=== PATIENT | female | born 1960 | race Caucasian/White ===

== ENCOUNTER 2017-11-06 08:59 | Outpatient (CLI) | payer MEDICAID ==
[~2017-11-06] VITALS: Ht 160 cm; Wt 80.6 kg
--- NOTE | ~2017-11-06 | HEMODYNAMI ---
PATIENT:KRZYSZTOF FIELDS MEDICAL RECORD: [id number] : 64 LOCATION:[facility] ADMISSION DATE: 11/06/17 Generatedon:11/06/201711:29 Patient name: KRZYSZTOF FIELDS Patient #: [id number] SSN : : 1960 Date of study: 11/06/2017 Page: Of Hemodynamic Procedure Report Patient Data Patient Demographics Procedure consent was obtained First Name: KRZYSZTOF Gender: Female Last Name: DONNIE : 1960 [facility] Initial: MARCY Age: 57 year(s) Patient #: [id number] Race: Unknown Additional ID: [id number] Contact details [address]: [address] [place] [address] State: [place] City: [place] Zip code: [address] Past Medical History Allergies Allergen Reaction Date Comments Reported Other allergy 11/06/2017 penicillin Admission Admission Data Admission Date: 11/06/2017 Admission Time: 8:59 Lab Results Lab Result Date: 11/06/2017 Lab Result Time: 0:00 Biochemistry Name Units Result Min Max BUN mg/dl 23 --(----)-* 7 18 Creatinine mg/dl 1.1 --(--*-)-- 0.6 1.3 CBC Name Units Result Min Max Hemoglobin g/dl 13.9 --(*---)-- 13.5 17.5 Procedure Procedure Types Cath Procedure Diagnostic Procedure [facility] w/Coronaries FFR/IVUS Intra-Coronary IVUS Initial PCI Procedure Coronary Stent Coronary Stent Initial Miscellaneous Procedures Moderate Sedation up to 30 minutes Procedure Description Procedure Date Procedure Date: 11/06/2017 Procedure Start Time: 11:03 Procedure End Time: 11:21 Procedure Staff Name Function Elton Elmore MD Performing Physician Mary Salomon RT Monitor Christine Crooks RT Scrub Gretchen Cardona RN Nurse Eb Guerrier RN Casualty Claim Adjuster Procedure Data Cath Procedure Fluoroscopy Diagnostic fluoroscopy Total fluoroscopy Time: 4.3 time: 4.3 min min Diagnostic fluoroscopy Total fluoroscopy dose: 592 dose: 592 mGy mGy Contrast Material Contrast Material Type Amount (ml) Isovue 300 101 Entry Location Entry Primary Successful Side Size Upsize Upsize Entry Closure Barrios ccessful Closure Location (Fr) 1 (Fr) 2 (Fr) Remarks Device Remarks Radial Right 6 Fr Mechanical artery Short Compression Estimated blood loss: 5 ml Diagnostic catheters Device Type Used For End Catheter Placement DIAGNOSTIC [place] 110cm 5 Multi-vessel Fr catheter ([id number]) Angiography Procedure Complications No complications Procedure Medications Medication Administration Route Dosage Oxygen NC 2 l/min Lidocaine 2% added to field 20 Heparin Flush Bag added to field 2 bags (1000units/500ml NS) 0.9% NaCl I.V. 100 ml/hr Versed I.V. 1 mg Fentanyl I.V. 50 mcg Versed I.V. 1 mg Fentanyl I.V. 50 mcg Heparin Bolus I.V. 4000 units Integrilin (Bolus I.V. 6.8 ml 2mg/ml) Versed I.V. 1 mg Fentanyl I.V. 50 mcg Versed I.V. 1 mg Fentanyl I.V. 50 mcg Plavix P.O. 600 mg Radial Cocktail I.A. 1 syringe (Verapomil 2mg/Nitro 400mcg/Heparin 1500units) Hemodynamics Rest HGB: 13.9 (g/dl) Heart Rate: 72 (bpm) Snapshots Pre Cath Intra NCS Post Cath Vital Signs Time Heart Resp SPO2 etCO2 NIBP Rhythm Pain Sedation Rate (ipm) (%) (mmHg) (mmHg) Status Level (bpm) 10:56:08 64 15 94 42.2 101/69(85) NSR 0 (11) 10(A) , No pain 11:00:12 67 16 96 40.7 107/71(86) NSR 0 (11) 10(A) , No pain 11:04:18 69 18 95 40.7 102/73(87) NSR 0 (11) 10(A) , No pain 11:08:26 80 19 95 38.5 78/59(69) NSR 0 (11) 10(A) , No pain 11:13:02 81 16 96 37.7 101/74(97) NSR 0 (11) 9(A) , No pain 11:17:06 76 17 96 35.4 107/67(80) NSR 0 (11) 9(A) , No pain 11:21:12 77 17 96 38.5 107/72(98) NSR 0 (11) 10(A) , No pain Medications Time Medication Route Dose Verified Delivered Reason Note s Effectiveness by by 10:55:20 Oxygen NC 2 l/min Elton Buffie used for Catarina Cardona RN procedure 10:55:27 Lidocaine 2% added 20ml Eltonami Conde for local to vial Catarina Elmore MD anesthetic field 10:55:33 Heparin Flush added 2 bags Eltonami Conde used for Bag to Catarina Elmore MD procedure (1000units/500ml field NS) 10:55:41 0.9% NaCl I.V. 100 Elton Buffie Per physician ml/hr Catarina Cardona RN 11:01:25 Versed I.V. 1 mg Elton Buffie for sedation Catarina Cardona RN 11:01:30 Fentanyl I.V. 50 mcg Elton Buffie for sedation Catarina Cardona RN 11:05:22 Versed I.V. 1 mg Elton Buffie for sedation Catarina Cardona RN 11:05:26 Fentanyl I.V. 50 mcg Elton Buffie for sedation Catarina Cardona RN 11:06:19 Radial Cocktail I.A. 1 Elton Elton for (Verapomil syringe Catarina Elmore MD vasodilation 2mg/Nitro 400mcg/Heparin 1500units) 11:09:03 Versed I.V. 1 mg Elton Buffie for sedation Catarina Cardona RN 11:09:06 Fentanyl I.V. 50 mcg Elton Buffie for sedation Catarina Cardona RN 11:11:06 Heparin Bolus I.V. 4000 Elton Buffie for veri fied units Catarina Cardona RN anticoagulation with dr elmore 11:15:44 Integrilin I.V. 6.8 ml Elton Buffie for Wast ed (Bolus 2mg/ml) Catarina Cardona RN anticoagulation 3.2 ml of vial 11:18:29 Versed I.V. 1 mg Elton Buffie for sedation Catarina Cardona RN 11:18:33 Fentanyl I.V. 50 mcg Elton Hassanie for sedation Catarina Cardona RN 11:21:32 Plavix P.O. 600 mg Elton Buffjil Cardona RN antiplatelet therapy Procedure Log Time Note 10:36:41 Eb Guerrier RN sent for patient. Start room use. 10:36:42 Time tracking: Regular hours 10:36:46 Plan of Care:Hemodynamics will remain stable., Cardiac rhythm will remain stable., Comfort level will be maintained., Respiratory function will remain adequate., Patient/ family verbilizes understanding of procedure., Procedure tolerated without complication., Recovers from procedure without complications.. 10:44:26 Patient received from Pre/Post Procedure Room to CCL 2 Alert and oriented. Tansferred to table in Supine position. 10:44:26 Warm blankets applied, and shawn hugger turned on for patient comfort. 10:44:27 Correct patient and procedure confirmed by team. 10:44:28 Signed procedure consent form obtained from patient. 10:44:29 ECG and BP/O2 sat monitors applied to patient. 10:44:30 Full Disclosure recording started 10:49:22 H&P Date Dictated: 11/06/2017 Within 30 days and on chart., H&P Addendum completed by physician on day of procedure. (MUST COMPLETE FOR ALL OUTPATIENTS). 10:49:23 Pre-procedure instructions explained to patient. 10:49:24 Pre-op teaching completed and patient verbalized understanding. 10:49:25 Family in waiting room. 10:49:26 Patient NPO since Midnight. 10:51:16 Patient allergic to Other allergypenicillin 10:51:20 Is the patient allergic to Iodine/contrast media? No. 10:51:21 Was the patient premedicated? No 10:51:24 Is patient on blood thinner?No 10:51:27 Patient diabetic? No. 10:51:31 Previous problem with sedation/anesthesia? No ? 10:51:42 Snore? Yes 10:52:02 Sleep apnea? Yes 10:52:03 Deviated septum? No 10:52:13 Opens mouth fully? Yes 10:52:14 Sticks out tongue? Yes 10:52:16 Airway obstruction? No ? 10:52:19 Dentures? No ? 10:53:06 Pre procedure: right dorsailis pedis pulse 2+ Normal; easily identifiable; not easily obliterated 10:53:09 Pre procedure: left dorsailis pedis pulse 2+ Normal; easily identifiable; not easily obliterated 10:53:18 Patient pain scale 0/10 ?. 10:53:20 Modified Virgil's test Radial < 7 seconds 10:53:33 IV patent on arrival in left forearm with 0.9% NaCl at KVO. 10:53:55 Lab Result : BUN 23 mg/dl 10:53:55 Lab Result : Creatinine 1.1 mg/dl 10:53:56 Lab Result : Hemoglobin 13.9 g/dl 10:53:58 Lab results completed and on chart. 10:54:03 Right Radial & Right Groin area was prepped with chlora-prep and draped in sterile fashion 10:54:04 Alarms reviewed by R. N. 10:54:04 Sharps counted by scrub and verified by R.N. 10:55:07 Vital chart was started 10:55:20 Oxygen 2 l/min NC was administered by Gretchen Cardona RN; used for procedure; 10:55:27 Lidocaine 2% 20ml vial added to field was administered by Elton Elmore MD; for local anesthetic; 10:55:33 Heparin Flush Bag (1000units/500ml NS) 2 bags added to field was administered by Elton Elmore MD; used for procedure; 10:55:41 0.9% NaCl 100 ml/hr I.V. was administered by Gretchen Cardona RN; Per physician; 10:58:30 Physician arrived 10:58:30 --------ALL STOP TIME OUT------ 10:58:31 Final Timeout: patient, procedure, and site verified with staff and physician. All members of the team are in agreement. 10:58:33 Right Radial & Right Groin site verified by team. 10:58:37 Physical assessment completed. ASA score P 2 - A patient with mild systemic disease as per Elton Elmore MD. 10:58:41 Sedation plan: IV Moderate Sedation Medication:Versed, Fentanyl 10:58:52 Use device set Radial Dx 10:58:53 ACIST Syringe (22332) opened to sterile field. 10:58:54 Medline Cath Pack ([id number]) opened to sterile field. 10:58:54 Bag Decanter () opened to sterile field. 10:58:55 SHEATH 6FR Slender ([id number]) opened to sterile field. 10:58:56 DIAGNOSTIC WIRE .035 260cm J wire (412939) opened to sterile field. 10:58:56 ACIST Hand Control (03449) opened to sterile field. 10:58:57 ACIST Manifold (75311) opened to sterile field. 10:58:59 MBrace Wrist Support ([id number]) opened to sterile field. 10:59:05 TR BAND Standard ([id number]) opened to sterile field. 11:00:23 Baseline sample Acquired. 11:01:25 Versed 1 mg I.V. was administered by Gretchen Cardona RN; for sedation; 11::30 Fentanyl 50 mcg I.V. was administered by Gretchen Cardona RN; for sedation; 11:03:32 Procedure started. 11:03:39 Local anesthetic to right radial artery with Lidocaine 2% by Elton Elmore MD.INITIAL ACCESS ONLY 11:04:45 Zero performed for pressure channel P1 11:05:22 Versed 1 mg I.V. was administered by Gretchen Cardona RN; for sedation; 11::26 Fentanyl 50 mcg I.V. was administered by Gretchen Cardona RN; for sedation; 11::26 A 6 Fr Short sheath was inserted into the Right Radial artery 11:05:38 A DIAGNOSTIC [place] 110cm 5 Fr catheter (326255) was advanced over the wire and used for Multi-vessel Angiography. 11:06:19 Radial Cocktail (Verapomil 2mg/Nitro 400mcg/Heparin 1500units) 1 syringe I.A. was administered by Elton Elmore MD; for vasodilation; 11:06:55 LCA angiography performed. 11:07:03 Injector settings: Ml/sec: 3, Volume: 6, 11:07:57 RCA angiography performed. 11:08:01 Injector settings: Ml/sec: 3, Volume: 6, 11:09:03 Versed 1 mg I.V. was administered by Gretchen Cardona RN; for sedation; 11::06 Fentanyl 50 mcg I.V. was administered by Gretchen Cardona RN; for sedation; 11::19 LV gram done using DELEON 11::21 Injector settings: Ml/sec: 5, Volume: 15, 11:09:27 EF : 60 % 11::29 Catheter removed. ::29 Proceeding to intervention. 11::42 GUIDE 6FR AR 1.0 catheter ([id number]) opened to sterile field. 11:09:44 INFLATOR Merit BasixCompak (SB8183) opened to sterile field. 11:09:45 [facility] IVUS Catheter (07608O) opened to sterile field. 11:09:59 WHISPER 190cm wire ([id number]) opened to sterile field. 11:10:35 GUIDE 6FR XBLAD 3.5 catheter ([id number]) opened to sterile field. 11:10:43 6 Fr ar 1 guide catheter was inserted over the wire 11:10:47 whisper wire advanced. 11:10:53 IVUS catheter advanced over wire. 11:11:06 Heparin Bolus 4000 units I.V. was administered by Gretchen Cardona RN; for anticoagulation; verified with dr elmore 11:15:44 Integrilin (Bolus 2mg/ml) 6.8 ml I.V. was administered by Gretchen Cardona RN; for anticoagulation; Wasted 3.2 ml of vial 11:17:06 IVUS pass to RCA lesion performed. 11:17:11 IVUS catheter removed over wire. 11:18:29 Versed 1 mg I.V. was administered by Gretchen Cardona RN; for sedation; 11:18:29 Inflation number: 1 A INTEGRITY RX 3.5 x 15 stent ([id number]) was prepped and advanced across the Prox RCA, then inflated to 13 WILBUR for 0:10 (min:sec). 11:18:33 Fentanyl 50 mcg I.V. was administered by Gretchen Cardona RN; for sedation; 11:18:34 Stent catheter was removed intact over wire. 11:18:35 Wire removed. 11:18:36 Guide catheter removed. 11:18:48 Sheath removed intact; hemostasis achieved with Mechanical Compression to the Right Radial artery. 11:18:50 Procedure ended.(Physican Out) 11:19:52 Fluoroscopy time 04.30 minutes. 11:19:55 Fluoroscopy dose: 592 mGy 11:19:55 Flurop Dose total: 592 11:20:09 Contrast amount:Isovue 300 101ml. 11:20:10 Sharps counted by scrub and verified by R.N. 11:20:13 TR band inflated with 10cc of air. 11:20:14 Insertion/operative site no bleeding no hematoma. 11:20:18 Post right radial artery:stable 11:20:19 Post Procedure Pulses reassessed and unchanged 11:20:21 Post procedure rhythm: unchanged. 11:20:24 Estimated blood loss: 5 ml 11:20:25 Post procedure instruction explained to patient.Patient verbalizes understanding. 11:20:26 Patient needs reinforcement of post procedure teaching. 11:20:41 Procedure type changed to Cath procedure, Diagnostic procedure, LHC, LHC w/Coronaries, FFR/IVUS, Intra-Coronary IVUS Initial, PCI procedure, Coronary Stent, Coronary Stent Initial, Miscellaneous Procedures, Moderate Sedation up to 30 minutes 11:20:43 Procedure and supply charges have been captured, reviewed, submitted and are correct. 11:20:47 Procedure Complication : No complications 11:20:49 Vital chart was stopped 11:20:50 See physician's report for complete and final results. 11:20:56 Report given to [facility]. 11:20:58 Patient transfered to [facility] with Stretcher. 11:21:00 Procedure ended. 11:21:00 Full Disclosure recording stopped 11:21:11 ACC-PCI Only Patient was given prescriptions, or instructed by Elton Elmore MD to start/continue the following medications upon discharge: Plavix 11:21:13 End room use (Document Last) 11:21:32 Plavix 600 mg P.O. was administered by Gretchen Cardona RN; for antiplatelet therapy; Intervention Summary Intervention Notes Time ActionType Lesion and Equipment Action# Pressure Duration Attributes Used 11:18:29 Inflate Prox RCA INTEGRITY RX 1 13 00:10 balloon 3.5 x 15 stent ([id number]) Device Usage Item Name Manufacture Quantity Catalog Hospital Part Current Minima l Lot# / Number Charge Number Stock Stock Serial# Code ACIST Acist 1 04299 017686 179228 979482 20 Syringe Lime [employer]systems (19553) Systems Inc Medline Cath Cardinal 1 [id number] 258772 35991 589495 5 Pack Hospitality Leaders ([id number]) Bag Decanter Microtek 1 025221 85947 968736 5 () Medical Inc. SHEATH 6FR Terumo 1 [id number] 425930 507769 073448 40 Slender ([id number]) DIAGNOSTIC [facility] [place] 1 752884 253346 343800 299991 30 WIRE .035 260cm J wire (424145) ACIST Hand Acist 1 58611 950798 053997 199516 5 Control Medical (04494) Systems Inc ACIST Acist 1 39920 729041 506510 194994 5 Manifold Medical (73504) Systems Inc MBrace Wrist Advanced 1 140-0250-00 607909 16745 383065 5 Support Vascular ([id number]) Dynamics TR BAND Terumo 1 [id number] 136355 017958 193583 40 Standard ([id number]) DIAGNOSTIC Terumo 1 40-5013 774666 326288 959124 5 [place] 110cm 5 Fr catheter (905608) GUIDE 6FR AR Medtronic 1 [id number] 148997 86818 023152 1 1.0 catheter (PV2DG53) INFLATOR Merit 1 JE2100 546717 734772 501077 15 [facility] Medical BasixCompak (WT7761) [place] 1 89930W 418036 421538 275573 8 [facility] IVUS Catheter (28252G) WHISPER Bryant 1 [id number] 634865 767912 152141 5 190cm wire Vascular ([id number]) GUIDE 6FR Cardinal 1 [id number] 628745 264540 865497 10 XBLAD 3.5 Health catheter (84555573) INTEGRITY RX Medtronic 1 [id number] 942724 705014 733789 5 [id number] 3.5 x 15 stent ([id number]) Signature Audit [place] Stage Time Signature Unsigned Intra-Procedure 11/06/2017 Mary Salomon 11:29:01 AM RT(R) Signatures Monitor : Mary Salomon RT Signature : Date : Time : [facility] [address] [place] [address]
--- NOTE | ~2017-11-06 | HEMODYNAMI ---
PATIENT:KRZYSZTOF FIELDS MEDICAL RECORD: [id number] : 64 LOCATION:D. D.2126 ADMISSION DATE: 11/06/17 Generatedon:11/07/201711:31 Patient name: KRZYSZTOF FIELDS Patient #: [id number] SSN : : 1960 Date of study: 11/07/2017 Page: Of Hemodynamic Procedure Report Patient Data Patient Demographics Procedure consent was obtained First Name: KRZYSZTOF Gender: Female Last Name: DONNIE : 1960 [facility] Initial: MARCY Age: 57 year(s) Patient #: [id number] Race: Unknown Additional ID: [id number] Contact details [address]: [address] [place] [address] State: [place] City: [place] Zip code: [address] Past Medical History Allergies Allergen Reaction Date Comments Reported Other allergy 11/06/2017 penicillin Other allergy 11/07/2017 PCN Admission Admission Data Admission Date: 11/06/2017 Admission Time: 8:59 Admit Source: Other Room #: D.2126 Height (in.): 62.99 BSA: 1.83 (m2) Height (cm.): 160 BMI: 31.25 (kg/m2) Weight (lbs.): 176.37 Weight (kg.): 80 Lab Results Lab Result Date: 11/06/2017 Lab Result Time: 0:00 Biochemistry Name Units Result Min Max BUN mg/dl 23 --(----)-* 7 18 Creatinine mg/dl 1.1 --(--*-)-- 0.6 1.3 CBC Name Units Result Min Max Hemoglobin g/dl 13.9 --(*---)-- 13.5 17.5 Procedure Procedure Types Cath Procedure PCI Procedure Coronary Stent Coronary Stent Initial Miscellaneous Procedures Moderate Sedation up to 15 minutes Procedure Description Procedure Date Procedure Date: 11/07/2017 Procedure Start Time: 11:17 Procedure End Time: 11:24 Procedure Staff Name Function Elton Elmore MD Performing Physician Christine Crooks RT Monitor Mary Salomon RT Scrub Gretchen Cardona RN Nurse Procedure Data Cath Procedure Fluoroscopy Diagnostic fluoroscopy Total fluoroscopy Time: 1.2 time: 1.2 min min Diagnostic fluoroscopy Total fluoroscopy dose: 125 dose: 125 mGy mGy Contrast Material Contrast Material Type Amount (ml) Isovue 300 25 Entry Location Entry Primary Successful Side Size Upsize Upsize Entry Closure Succes sful Closure Location (Fr) 1 (Fr) 2 (Fr) Remarks Device Remarks Femoral Right 6 Fr Exoseal artery Short Estimated blood loss: 10 ml Procedure Complications No complications Procedure Medications Medication Administration Route Dosage Oxygen NC 2 l/min Lidocaine 2% added to field 20 Heparin Flush Bag added to field 2 bags (1000units/500ml NS) 0.9% NaCl I.V. 100 ml/hr Versed I.V. 2 mg Fentanyl I.V. 100 mcg Versed I.V. 1 mg Fentanyl I.V. 50 mcg Heparin Bolus I.V. 4000 units Versed I.V. 1 mg Fentanyl I.V. 50 mcg Hemodynamics Rest BSA: 1.83 (m2) HGB: 13.9 (g/dl) O2 Consumption: Estimated: 179.83 (ml/min) O2 Co nsumption indexed: Estimated:98.27 (ml/min/m) Heart Rate: 75 (bpm) Snapshots Pre Cath Intra NCS Post Cath Vital Signs Time Heart Resp SPO2 NIBP Rhythm Pain Sedation Rate (ipm) (%) (mmHg) Status Level (bpm) 10:52:27 75 14 97 106/75(90) NSR 0 (11) 10(A) , No pain 10:56:35 79 17 96 106/65(79) NSR 0 (11) 10(A) , No pain 11:00:40 82 16 97 100/69(82) NSR 0 (11) 10(A) , No pain 11:04:44 73 16 93 100/68(79) NSR 0 (11) 10(A) , No pain 11:08:46 77 18 97 102/74(86) NSR 0 (11) 10(A) , No pain 11:12:45 75 16 95 97/70(83) NSR 0 (11) 10(A) , No pain 11:16:43 74 16 94 107/83(96) NSR 0 (11) 9(A) , No pain 11:20:49 86 16 93 112/69(85) NSR 0 (11) 9(A) , No pain 11:30:02 83 15 95 106/76(88) NSR 0 (11) 10(A) , No pain Medications Time Medication Route Dose Verified Delivered Reason Notes Effectiveness by by 10:52:32 Oxygen NC 2 Elton Buffie used for l/min Catarina Cardona RN procedure 10:52:40 Lidocaine 2% added 20ml Elton Elton for local to vial Ctaarina Elmore MD anesthetic field 10:52:46 Heparin Flush added 2 Elton Elton used for Bag to bags Catarina Elmore MD procedure (1000units/500ml field NS) 10:52:54 0.9% NaCl I.V. 100 Elton Buffie Per physician ml/hr Catarina Cardona RN 11:13:36 Versed I.V. 2 mg Elton Buffie for sedation Catarina Cardona RN 11:13:43 Fentanyl I.V. 100 Elton Buffie for sedation mcg Catarina Cardona RN 11:16:34 Versed I.V. 1 mg Elton Buffie for sedation Catarina Cardona RN 11:16:38 Fentanyl I.V. 50 Elton Buffie for sedation mcg Catarina Cardona RN 11:18:00 Heparin Bolus I.V. 4000 Elton Buffie for verifi ed units Catarina Cardona RN anticoagulation with dr elmore 11:20:05 Versed I.V. 1 mg Elton Buffie for sedation Catarina Cardona RN 11:20:09 Fentanyl I.V. 50 Elton Buffie for sedation mcg Catarina Cardona RN Procedure Log Time Note 10:30:25 Patient Height : 62.99 inches 10:30:31 Patient Weight : 176.37 lbs 10:31:03 Diagnostic Cath status Elective 10:31:04 Christine LOCKE(R) sent for patient. Start room use. 10:31:05 Time tracking: Regular hours 10:31:09 Plan of Care:Hemodynamics will remain stable., Cardiac rhythm will remain stable., Comfort level will be maintained., Respiratory function will remain adequate., Patient/ family verbilizes understanding of procedure., Procedure tolerated without complication., Recovers from procedure without complications.. 10:36:03 Admit Source: Other 10:36:09 Patient received from Med II to CCL 2 Alert and oriented. Tansferred to table in Supine position. 10:36:10 Warm blankets applied, and shawn hugger turned on for patient comfort. 10:36:11 Correct patient and procedure confirmed by team. 10:36:13 Signed procedure consent form obtained from patient. 10:36:23 H&P Date Dictated: 11/06/2017 Within 30 days and on chart.. 10:36:24 Pre-procedure instructions explained to patient. 10:36:27 Family in patients room. 10:36:29 Patient NPO since Midnight. 10:37:34 Patient allergic to Other allergyPCN 10:38:44 Was the patient premedicated? Yes 10:38:46 Is patient on blood thinner?Yes 10:38:48 ACC The patient was administered the following blood thiners within the last 24 hours: ACCPlavix 10:50:23 Patient diabetic? No. 10:50:29 Snore? Yes 10:50:30 Sleep apnea? Yes 10:51:05 Patient pain scale 0/10 ?. 10:51:17 IV patent on arrival in left forearm with 0.9% NaCl at O. 10:51:26 ECG and BP/O2 sat monitors applied to patient. 10:51:28 Vital chart was started 10:51:29 Baseline sample Acquired. 10:51:34 Rhythm: sinus rhythm 10:51:35 Full Disclosure recording started 10:51:43 Lab results completed and on chart. 10:51:46 Right groin area was prepped with chlora-prep and draped in sterile fashion 10:51:48 Alarms reviewed by R. N. 10:51:49 Sharps counted by scrub and verified by R.N. 10:52:32 Oxygen 2 l/min NC was administered by Gretchen Cardona RN; used for procedure; 10:52:40 Lidocaine 2% 20ml vial added to field was administered by Elton Elmore MD; for local anesthetic; 10:52:46 Heparin Flush Bag (1000units/500ml NS) 2 bags added to field was administered by Elton Elmore MD; used for procedure; 10:52:54 0.9% NaCl 100 ml/hr I.V. was administered by Buffie Cardona RN; Per physician; 10:57:52 Zero performed for pressure channel P1 11:07:52 Physician paged 11:13:09 Physician arrived 11:13:09 --------ALL STOP TIME OUT------ 11:13:10 Final Timeout: patient, procedure, and site verified with staff and physician. All members of the team are in agreement. 11:13:12 Right groin site verified by team. 11:13:16 Physical assessment completed. ASA score P 2 - A patient with mild systemic disease as per Elton Elmore MD. 11:13:19 Sedation plan: IV Moderate Sedation Medication:Versed, Fentanyl 11:13:36 Versed 2 mg I.V. was administered by Gretchen Cardona RN; for sedation; 11:13:42 Use device set TAUTH PCI 11:13:43 Fentanyl 100 mcg I.V. was administered by Gretchen Cardona RN; for sedation; 11:13:44 INFLATOR Merit BasixCompak ([id number]) opened to sterile field. 11:13:46 SHEATH 6FR Virgin (RSQ004) opened to sterile field. 11:14:00 Use device set Femoral Dx 11:14:05 EXOSEAL 6Fr (EX600) opened to sterile field. 11:14:08 ACIST Syringe (96662) opened to sterile field. 11:14:09 Bag Decanter (2002) opened to sterile field. 11:14:13 Medline Cath Pack ([id number]) opened to sterile field. 11:14:16 DIAGNOSTIC WIRE .035 260cm J wire (867598) opened to sterile field. 11:14:18 ACIST Hand Control (50399) opened to sterile field. 11:14:18 ACIST Manifold (72572) opened to sterile field. 11:14:22 Tegaderm 4 x 4 (1626W) opened to sterile field. 11:14:23 PERCUTANEOUS ENTRY 19GA needle opened to sterile field. 11:16:34 Versed 1 mg I.V. was administered by Gretchen Cardona RN; for sedation; 11:16:38 Fentanyl 50 mcg I.V. was administered by Gretchen Cardona RN; for sedation; 11:16:50 Procedure started. 11:16:55 GUIDE 6FR XBLAD 3.5 catheter ([id number]) opened to sterile field. 11:17:07 WHISPER 190cm wire ([id number]) opened to sterile field. 11:17:20 Local anesthetic to right femoral artery with Lidocaine 2% by Elton Elmore MD.INITIAL ACCESS ONLY 11:17:35 A 6 Fr Short sheath was inserted into the Right Femoral artery 11:17:53 6 Fr XBLAD 3.5 guide catheter was inserted over the wire 11:17:57 whisper wire advanced. 11:17:59 Wire advanced across lesion. 11:18:00 Heparin Bolus 4000 units I.V. was administered by Gretchen Cardona RN; for anticoagulation; verified with dr elmore 11:20:05 Versed 1 mg I.V. was administered by Gretchen Cadrona RN; for sedation; 11:20:09 Fentanyl 50 mcg I.V. was administered by Gretchen Cardona RN; for sedation; 11:20:13 Inflation Number: 1 A INTEGRITY RX 3.0 x 18 stent ([id number]) was prepped and advanced across the Mid LAD. The stent was deployed at 11 WILBUR for 0:07 (min:sec). 11:20:34 Wire removed. 11:20:35 Guide catheter removed. 11:20:46 Sheath removed intact; hemostasis achieved with Exoseal to the Right Femoral artery. 11:20:49 Procedure ended.(Physican Out) 11:22:48 Fluoroscopy time 01.20 minutes. 11:22:51 Flurop Dose total: 125 11:22:51 Fluoroscopy dose: 125 mGy 11::55 Contrast amount:Isovue 300 25ml. 11::56 Sharps counted by scrub and verified by R.N. 11::58 Insertion/operative site no bleeding no hematoma. 11:23:00 Post Procedure Pulses reassessed and unchanged 11:23:05 Post-procedure physical assessment completed. ASA score P 2 - A patient with mild systemic disease as per Elton Elmore MD. 11:23:08 Post procedure rhythm: unchanged. 11:23:11 Estimated blood loss: 10 ml 11:23:13 Post procedure instruction explained to patient.Patient verbalizes understanding. 11:23:27 Procedure and supply charges have been captured, reviewed, submitted and are correct. 11:23:51 Procedure Complication : No complications 11:23:54 Vital chart was stopped 11::55 See physician's report for complete and final results. 11:23:56 Report given to [facility]. 11:24:01 Patient transfered to [facility] with Bed. 11:24:09 Procedure ended. 11:24:09 Full Disclosure recording stopped 11:24:12 End room use (Document Last) Intervention Summary Intervention Notes Time ActionType Lesion and Equipment Action# Pressure Duration Attributes Used 11:20:13 Place stent Mid LAD INTEGRITY RX 1 11 00:07 3.0 x 18 stent ([id number]) Device Usage Item Name Manufacture Quantity Catalog Hospital Part Current Minimal Lot# / Number Charge Number Stock Stock Serial# Code INFLATOR sigmacare 1 [id number] 414124 315478 15 [facility] Agralogics BasixCompak (LL3082) SHEATH 6FR Terumo 1 [id number] 828265 711681 019744 40 Virgin (FII089) EXOSEAL 6Fr Cardinal 1 EX600 837242 057965 289242 10 (EX600) Health ACIST Acist 1 44031 744410 475233 989634 20 Syringe Medical (61603) Systems Inc Bag Decanter Microtek 1 2001S 408039 70740 221252 5 (2001S) Medical Inc. Medline Cath Cardinal 1 [id number] 074023 03249 971985 5 Pack Annai Systems ([id number]) DIAGNOSTIC [facility] [place] 1 476334 931182 818405 578748 30 WIRE .035 260cm J wire (112691) ACIST Hand Acist 1 91934 508304 708827 315212 5 Control Medical (46090) Systems Inc ACIST Acist 1 10642 553399 294130 068236 5 Manifold Medical (15581) Systems Inc Tegaderm 4 x 3M 1 1626W 903090 147622 954507 5 4 (1626W) PERCUTANEOUS Cook Medical 1 V05606 335111 275879 5 ENTRY 19GA needle GUIDE 6FR Cardinal 1 [id number] 603791 437800 321143 10 XBLAD 3.5 Health catheter ([id number]) WHISPER Bryant 1 [id number] 388163 398545 723506 5 190cm wire Vascular ([id number]) INTEGRITY RX Medtronic 1 [id number] 144599 369121 480345 5 [id number] 3.0 x 18 stent ([id number]) Signature Audit [place] Stage Time Signature Unsigned Intra-Procedure 11/07/2017 Christine Crooks 11:31:14 AM RT(R) Signatures Monitor : Christine Crooks Signature : RT Date : Time : [address] [place] [address]
[2017-11-06] MEDS ORDERED: SYNTHROID88 MCG PO (09:15)
[2017-11-06] MEDS ORDERED: KLOR-CON 1010 MEQ PO (09:16)
[2017-11-06] MEDS ORDERED: LASIX80 MG PO (09:16)
[2017-11-06] MEDS ORDERED: COREG CR10 MG PO (09:16)
[2017-11-06] MEDS ORDERED: NORVASC10 MG PO (09:16)
[2017-11-06] MEDS ORDERED: ALDACTONE25 MG PO (09:17)
[2017-11-06] MEDS ORDERED: MULTIPLE VITAMI1 TA1 PO (09:18)
[2017-11-06] MEDS ORDERED: BAYER CHEWABLE81 MG PO (09:18)
[2017-11-06] MEDS ORDERED: CALCIUM 500 + D1 TAB PO (09:18)
[2017-11-06] MEDS ORDERED: EFFEXOR50 MG PO (09:18)
[2017-11-06] MEDS ORDERED: PRAVASTATIN SOD10 MG PO (09:19)
[2017-11-06] MEDS ORDERED: KLONOPIN1 MG PO (09:19)
[2017-11-06] MEDS ORDERED: SINEQUAN100 MG PO (09:19)
[2017-11-06] MEDS ORDERED: KEPPRA250 MG PO (09:20)
[2017-11-06] MEDS ORDERED: LAMICTAL25 MG PO (09:20)
[2017-11-06 09:29] VITALS: BP 131/93; BMI 29.2
[2017-11-06 09:59] LABS: BASOPHILS 0.8 % (0-2); EOSINOPHILS 3.5 % (0-7); HEMATOCRIT 41.8 % (36.0-48.0); HEMOGLOBIN 13.9 g/dL (12-16); IMMATURE GRANULOCYTES 0.1 % (0-5); LYMPHOCYTES 21.9 % (15-50); MCH 30.5 pg (26.0-34.0); MCHC 33.3 g/dL (31.0-37.0); MCV 91.9 fL (80.0-100.0); MEAN PLATELET VOLUME 11.1 fL (7.4-10.4); MONOCYTES 9.5 % (2-11); NEUTROPHILS 64.2 % (40-80); PLATELET COUNT 281 10x3/uL (130-400); RBC 4.55 10x6/uL (4.00-5.40); RDW 13.5 % (11.5-14.5)
[2017-11-06 10:10] LABS: ANION GAP 10.3 mmol/L (8-16); CALCIUM 9.5 mg/dL (8.5-10.1); CARBON DIOXIDE 33.3 mmol/L (21.0-32.0); CREATININE - SERUM 1.1 mg/dL (0.6-1.3); POTASSIUM - SERUM 3.6 mmol/L (3.5-5.1)
--- NOTE | 2017-11-06 11:50 | NUR ---
RECIVED FROM APPRENTICE PHOTOGRAPHER PER BED. TR-BAND TO RIGHT WRIST. FAMILY AT SIDE. ADMIT ASSESSMENT PER RN.
--- NOTE | 2017-11-06 12:40 | NUR ---
TRANSFER FROM SNUFF PACKING MACHINE OPERATOR. VS WNL. RIGHT WRIST STABLE WITH TR BANS INTACT. WILL MONITOR.
[2017-11-06 12:43] VITALS: BP 120/77; Ht 160 cm; Wt 80.6 kg
[2017-11-06 15:51] VITALS: BP 100/66
--- NOTE | 2017-11-06 17:59 | NUR ---
WITHOUT CHANGES OR DISTRESS NOTED AT THIS TIME. DENIES NEEDS,
[2017-11-06 19:00] VITALS: BP 104/57
[2017-11-07] VITALS: BP 90/65
[2017-11-07 04:00] VITALS: BP 96/65
--- NOTE | 2017-11-07 07:35 | NUR ---
ASSESSMENT DONE. DENIES NEEDS.
[2017-11-07 07:41] VITALS: BP 99/60
--- NOTE | 2017-11-07 09:05 | NUR ---
RESTS IN BED WITHOUT NEEDS AT THIS TIME. CALL LIGHT IN REACH. WILL MONITOR.
--- NOTE | 2017-11-07 11:24 | HP ---
PATIENT: KRZYSZTOF FIELDS MEDICAL RECORD: [id number] ACCOUNT: [id number] LOCATION:[address] : 64 ADMISSION DATE: 11/06/17 HISTORY AND PHYSICAL EXAMINATION DIAGNOSES: 1. Angina. 2. Abnormal nuclear stress test. 3. Family history of coronary artery disease. HISTORY OF PRESENT ILLNESS: Mrs. Fields represents with new onset anginal symptomatology. Nuclear stress test revealed significant perfusion defect anteroapically. PHYSICAL EXAMINATION: GENERAL APPEARANCE: Well-nourished, well-developed, appears stated age. Level of distress, comfortable. PSYCHIATRIC: Mental status, alert, normal affect. Orientation, oriented to time, place and person. EYES: Lids and conjunctiva, noninjected. No discharge, no pallor. ENT: Lips, teeth, gums, normal dentition. Oropharynx, no cyanosis, no pallor. NECK: Carotid arteries, bilateral normal upstroke, no bruits, no thrills. JUGULAR VEINS: No jugular venous pressure or distention. CERVICAL LYMPH NODES: Nontender, nonenlarged. THYROID: Not enlarged. Nontender. No nodules. LUNGS: Respiratory effort, unlabored. CHEST: Normal curvature. No thoracic deformity. No chest wall tenderness. Percussion, resonant. Auscultation, clear. No wheezes, no rales, no rhonchi. CARDIOVASCULAR: Precordial exam, nondisplaced. No heaves or pericardial thrills. Rate and rhythm, regular. Heart sounds, normal S1, normal S2. No S3, no gallop, no rub. Systolic murmur, not heard. Diastolic murmur, not heard. EXTREMITIES: No cyanosis, no edema. Peripheral pulses, full and equal in all extremities, except as noted. No bruits appreciated. ABDOMEN: Soft, nondistended. Normal aorta. No bruit. Nontender. No masses. Liver, nontender, no hepatomegaly. Spleen, nontender, no splenomegaly. MUSCULOSKELETAL: No joint tenderness. No joint swelling. No erythema. NEUROLOGICAL: Normal gait, normal strength, normal tone. SKIN: Warm and dry. REVIEW OF SYSTEMS: The patient reports easy bruising but reports no swollen glands. The patient reports no fever, no night sweats, no significant weight gain, no significant weight loss. No significant exercise tolerance. The patient reports no dry eyes, no irritation, no vision change. Patient reports no difficulty hearing and no ear pain. Patient reports no frequent nose bleeds or nose and sinus problems. Patient reports on arm pain on exertion. No shortness of breath while lying down. No history of heart murmur. Patient reports no cough, no wheezing or coughing up blood. Patient reports no abdominal pain, no vomiting. Normal appetite. No diarrhea and not vomiting blood. No nausea and no constipation. Patient reports no incontinence. No difficulty urinating. No hematuria. No increased frequency. Patient reports no muscle aches. No weakness, no arthralgias, no back pain. No swelling of the extremities. Patient reports no abnormal mole, no jaundice, no rashes. Reports no loss of consciousness. No weakness and no numbness. No seizures, dizziness, or headaches. The patient reports no depression, no sleep disturbance, feeling safe in a relationship and no alcohol abuse. Patient reports on fatigue. HISTORY AND PHYSICAL [id number] KRZYSZTOF FIELDS Reports no runny nose or sinus pressure. No itching, no hives, and no frequent sneezing. OVERALL IMPRESSION: Anginal symptomatology with abnormal nuclear stress test, high likelihood of hemodynamically significant coronary artery disease. We will proceed with coronary angiography. Further care depends upon findings of the angiography. TRANSINT:[id number] Voice Confirmation ID: [id number] DOCUMENT ID: [id number] INO COTTRELL MD at 1124 CC: [id number] DICTATION DATE: 11/06/17 1000 GAS APPLIANCE MECHANIC: 11/06/17 1015 [facility] [address] [place] [address]
--- NOTE | 2017-11-07 11:30 | NUR ---
RECIVED FROM [facility] [facility] [employer] ASSEMBLER PER BED TO ROOM 2125. RT LEG GROIN C/D/I. PULSE PALP
[2017-11-07] MEDS ORDERED: PLAVIX75 MG PO (12:34)
[2017-11-07 15:45] VITALS: BP 92/61
--- NOTE | 2017-11-07 16:18 | NUR ---
DC AND RX GIVEN TO PT
--- NOTE | 2017-11-07 17:35 | NUR ---
DC HOME PER PERSONAL CAR
--- NOTE | 2017-11-15 15:46 | OP ---
PATIENT NAME: KRZYSZTOF FIELDS MEDICAL RECORD: [id number] :64 LOCATION:D.CAT ADMISSION DATE: SURGEON: INO COTTRELL MD DATE OF OPERATION: 11/06/2017 PROCEDURES: 1. PTCA stent, RCA. 2. Intravascular ultrasound. 3. Left heart catheterization. 4. Selective coronary angiography. 5. Left ventriculogram. INDICATION: Angina and coronary artery disease. PROCEDURE IN DETAIL: After informed consent was obtained and after a detailed explanation of the risks, benefits as well as alternative therapies, the patient elected to proceed with angiogram and angioplasty. The right radial area was prepped and draped in normal sterile fashion. The right radial artery was cannulated via modified Seldinger technique with placement of 6-Croatian sheath. All catheters exchanged through this sheath. FINDINGS: Left ventriculogram was performed in standard 30-degree DELEON view reveals good cardiac wall motion throughout all segments. Overall ejection fraction estimated at 65%. SELECTIVE CORONARY ANGIOGRAPHY: 1. Left main showed no significant angiographic disease. 2. Left anterior descending has a 70% to 75% stenosis in the proximal vessel. 3. Left circumflex shows moderate irregularities, but no flow-limiting stenosis. 4. The right coronary has a 70% stenosis confirmed by intravascular ultrasound in the proximal vessel. PTCA STENT OF THE RCA: The stent used is a 3.5 x 15 mm Integrity. Result was 0% residual stenosis. OVERALL IMPRESSION: Successful percutaneous transluminal coronary angioplasty stent of the RCA going from 70% initial stenosis to 0% residual. PLAN: PTCA stent of the LAD in the a.m. TRANSINT:[id number] Voice Confirmation ID: [id number] DOCUMENT ID: [id number] INO COTTRELL MD at 1546 CC: [id number] DICTATION DATE: 11/06/17 1123 GRAIN OILSEED OR PASTURE GROWER: 11/06/17 1139 [facility] CLI 11/07/[address] [address]
--- NOTE | 2017-11-15 15:46 | OP ---
PATIENT NAME: KRZYSZTOF FIELDS MEDICAL RECORD: [id number] :64 LOCATION:D.CAT ADMISSION DATE: SURGEON: INO COTTRELL MD DATE OF OPERATION: 11/07/2017 PROCEDURES: 1. PTCA stent to LAD. 2. Selective coronary angiography. INDICATION: Angina and coronary artery disease. PROCEDURE IN DETAIL: After informed consent was obtained, after detailed explanation of risks, benefits as well as alternative therapies, the patient elected to proceed with angiogram and angioplasty. The right femoral area was prepped and draped in normal sterile fashion. The right femoral artery was cannulated via modified Seldinger technique with placement of 6-Polish sheath. All catheters were exchanged through this sheath. FINDINGS: The left anterior descending has 70% to 80% stenosis proximally. This was addressed with a 3.0 x 15 mm Integrity stent. Result was 0% residual stenosis. OVERALL IMPRESSION: Successful percutaneous transluminal coronary angioplasty stent of the left anterior descending going from 70-80% initial stenosis to 0% residual. TRANSINT:[id number] Voice Confirmation ID: [id number] DOCUMENT ID: [id number] INO COTTRELL MD at 1546 CC: [id number] DICTATION DATE: 11/07/17 1127 MEAT INSPECTOR: 11/07/17 1141 [facility] CLI 11/07/[address] [address]
--- NOTE | 2017-11-15 15:46 | DS ---
PATIENT:KRZYSZTOF FIELDS :64 MEDICAL RECORD: [id number] DISCHARGE SUMMARY ADMISSION DATE: 11/06/17 DISCHARGE DATE: 11/07/17 DISCHARGE DIAGNOSES: 1. Angina. 2. Coronary artery disease. 3. Percutaneous transluminal coronary angioplasty stent right coronary artery and left anterior descending this admission. HOSPITAL COURSE: Ms. Fields presents with anginal symptomatology, found to have 2-vessel coronary artery disease, underwent successful PTCA stent of above territories of the LAD and RCA, had an uneventful postop course. He was discharged home with the addition of aspirin and Plavix to her medical regimen. We will follow with [facility] in 1 month. TRANSINT:[id number] Voice Confirmation ID: [id number] DOCUMENT ID: [id number] INO COTTRELL MD at 1546 CC: [id number] DICTATION DATE: 11/07/17 1126 PRODUCTION PACKAGER: 11/07/17 1315 [facility] CLI 11/07/17 [address] [place] [place] [address]
== END 2017-11-07 17:36 | disposition home or self-care (01) ==
LOC: D.CATH 08:59 → D.M2 08:59 → D.CATH 10:30 → D.M2 12:19 → D.CATH 11-07 17:36
PROVIDERS: Internal Medicine Interventional Cardiology
DX: I20.9 Angina pectoris, unspecified (principal); R94.30 Abnormal result of cardiovascular function study, unspecified; Z82.49 Family history of ischemic heart disease and other diseases of the circulatory system; Z01.812 Encounter for preprocedural laboratory examination